=== PATIENT | female | born 1945 | race African-American/Black ===

== ENCOUNTER 2020-03-08 11:05 | Inpatient (IN) | payer MEDICARE, OTHER ==
[~2020-03-08] VITALS: Ht 157.5 cm; Wt 79.8 kg
[2020-03-08] MEDS ORDERED: SODIUM CHLORIDE 0.9% 1,000 ML IV ONE (11:39)
[2020-03-08] MEDS ORDERED: METOCLOPRAMIDE HCL 10MG/2ML VIAL IV ONE (11:45)
[2020-03-08] MEDS ORDERED: DIPHENHYDRAMINE 50MG/ML VIAL IV ONE (11:45)
[2020-03-08 12:11] LABS: BASOPHILS % 0.5 % (0.0-2.0); EOSINOPHILS % 0.1 % (0.0-5.0); HEMATOCRIT. 40.8 % (36.0-48.0); HEMOGLOBIN. 13.5 g/dL (12.0-16.0); LYMPHOCYTES % 12.9 % (20.0-50.0); MEAN CORPUSCULAR HEMOGLOBIN 31.7 pg (28.0-32.0); MEAN CORPUSCULAR VOLUME 95.4 fL (81.0-99.0); MEAN PLATELET VOLUME 7.6 fl (7.4-10.4); NEUTROPHILS % 79.5 % (40.0-76.0); PLATELET 294 x1000/uL (130-400); RED BLOOD CELL COUNT 4.28 mill/uL (4.2-5.4); RED CELL DISTRIBUTION WIDTH 14.3 % (11.6-14.6)
[2020-03-08 12:19] LABS: CHLORIDE 108 mEq/L (98-107)
[2020-03-08 13:02] LABS: INR 1.1; PROTHROMBIN TIME 11.6 sec (9.6-11.0)
[2020-03-08] MEDS ORDERED: IOHEXOL-350 100 ML BOTTLE ONE (13:49)
[2020-03-08] MEDS ORDERED: CEFTRIAXONE 1 G PREMIX 50 ML IV ONE (14:00)
[2020-03-08] MEDS ORDERED: AZITHROMYCIN 500 MG in DEXT 5% WATER 250 ML IV ONE (14:00)
[2020-03-08] MEDS ORDERED: HYDROCODONE/ACETAMINOPHEN 5/325MG TABLET PO PRN (16:00)
[2020-03-08] MEDS ORDERED: IPRATROPIUM/ALBUTEROL 0.5-3(2.5)MG/3ML NEB NEB PRN (16:00)
[2020-03-08] MEDS ORDERED: DIPHENHYDRAMINE 50MG/ML VIAL IV PRN (16:00)
[2020-03-08] MEDS ORDERED: ONDANSETRON HCL 4MG/2ML INJ IV PRN (16:00)
[2020-03-08] MEDS ORDERED: LORAZEPAM 0.5MG TABLET PO PRN (16:00)
[2020-03-08] MEDS ORDERED: ACETAMINOPHEN 325MG TABLET PO PRN (16:00)
[2020-03-08] MEDS ORDERED: MAGNESIUM/ALUMINUM HYDROXIDE/SIMETHICONE 30ML UDC PO PRN (16:00)
[2020-03-08] MEDS ORDERED: CLONIDINE 0.1MG TABLET PO PRN (16:00)
[2020-03-08] MEDS ORDERED: ACETAMINOPHEN 650MG SUPP PR PRN (16:00)
[2020-03-08] MEDS ORDERED: DOCUSATE SODIUM 100MG CAPSULE PO PRN (16:00)
[2020-03-08] MEDS ORDERED: NA PHOS,M-B/NA PHOS,DI-BA ENEMA 118ML PR PRN (16:00)
[2020-03-08] MEDS ORDERED: GUAIFENESIN 200MG/10ML SUGAR FREE UDC PO PRN (16:00)
[2020-03-08] MEDS ORDERED: ENOXAPARIN 40MG/0.4ML SYR SUBCUT SCH (17:00)
[2020-03-08 19:30] LABS: CLARITY URINE CLEAR (CLEAR); COLOR URINE YELLOW (YELLOW); KETONES URINE TRACE (NEGATIVE); LEUKOCYTE ESTERASE URINE NEGATIVE (NEGATIVE); NITRITE URINE NEGATIVE (NEGATIVE); OCCULT BLOOD URINE NEGATIVE (NEGATIVE); PROTEIN URINE TRACE (NEGATIVE); SPECIFIC GRAVITY URINE 1.087 (1.005-1.030); UROBILINOGEN URINE 0.2 E.U./dL (0.2-1.0)
[2020-03-08 19:52] LABS: *AMPHETAMINES SCREEN URINE NEGATIVE (NEGATIVE); *BARBITURATES SCREEN URINE NEGATIVE (NEGATIVE); *BENZODIAZEPINES SCREEN URINE NEGATIVE (NEGATIVE); *COCAINE SCREEN URINE NEGATIVE (NEGATIVE)
[2020-03-08 19:53] LABS: CANNABINOID URINE SCREEN NEGATIVE (NEGATIVE); OPIATES URINE SCREEN NEGATIVE (NEGATIVE); PHENCYCLIDINE URINE SCREEN NEGATIVE (NEGATIVE)
[2020-03-08 19:54] LABS: METHADONE URINE SCREEN NEGATIVE (NEGATIVE)
[2020-03-08 20:00] VITALS: BP 174/78
[2020-03-08 21:10] VITALS: BP 174/78
[2020-03-08] MEDS: FAMOTIDINE 20MG TABLET PO SCH (21:52)
[2020-03-08] MEDS: ATORVASTATIN CALCIUM 10MG TABLET PO SCH (21:52)
[2020-03-09] VITALS: BP 121/64
[2020-03-09 04:00] VITALS: BP 129/56
[2020-03-09 08:00] VITALS: BP 125/54
[2020-03-09] MEDS: ASPIRIN 81MG EC TABLET PO SCH (08:02)
[2020-03-09 08:12] LABS: BASOPHILS % 0.4 % (0.0-2.0); EOSINOPHILS % 1.5 % (0.0-5.0); HEMATOCRIT. 38.1 % (36.0-48.0); LYMPHOCYTES % 22.1 % (20.0-50.0); MEAN CORPUSCULAR HEMOGLOBIN 32.3 pg (28.0-32.0); MEAN CORPUSCULAR VOLUME 94.8 fL (81.0-99.0); MEAN PLATELET VOLUME 7.7 fl (7.4-10.4); PLATELET 241 x1000/uL (130-400); RED BLOOD CELL COUNT 4.02 mill/uL (4.2-5.4)
[2020-03-09 08:25] LABS: CHLORIDE 109 mEq/L (98-107)
[2020-03-09 08:39] LABS: LDL CHOLESTEROL 133 mg/dL (5-100)
[2020-03-09 08:40] LABS: T4 FREE 1.05 ng/dL (0.76-1.46)
[2020-03-09 08:41] LABS: HDL CHOLESTEROL 57 mg/dL (40-59)
[2020-03-09 12:00] VITALS: BP 129/54
[2020-03-09] MEDS: AZITHROMYCIN 500 MG in DEXT 5% WATER 250 ML IV SCH (13:00)
[2020-03-09] MEDS ORDERED: AZITHROMYCIN 500 MG in DEXT 5% WATER 250 ML IV SCH (14:00)
[2020-03-09] MEDS ORDERED: CEFTRIAXONE 1 G PREMIX 50 ML IV SCH (14:00)
[2020-03-09 14:12] LABS: BG CARBOXYHEMOGLOBIN 0.3 % (0.5-1.5); BG DEOXYHEMOGLOBIN 6.6 % (0.0-5.0); BG FRACTION INSPIRED OXYGEN 21; BG HCO3 ACT 23.5 mmol/L (22.0-26.0); BG METHEMOGLOBIN 0.3 % (0.0-1.5); BG OXYGEN SATURATION 93.4 % (92.0-98.5); BG OXYHEMOGLOBIN 92.8 % (94.0-97.0); BG PCO2 34.9 mmHg (35.0-45.0); BG PH 7.447 (7.350-7.450); BG PO2 64.7 mmHg (75.0-100.0); BG SAMPLE SITE RIGHT RADIAL; BG TOTAL HEMOGLOBIN 13.5 g/dL (12.0-18.0); BG VENT MODE ROOM AIR
[2020-03-09] MEDS: CEFTRIAXONE 1,000 MG in DEXTROSE 5% WATER 50 ML IV SCH (16:10)
[2020-03-09 20:00] VITALS: BP 150/80
[2020-03-09] MEDS: ATORVASTATIN CALCIUM 10MG TABLET PO SCH (20:07)
[2020-03-09] MEDS: FAMOTIDINE 20MG TABLET PO SCH (20:07)
[2020-03-10] VITALS: BP 152/62
[2020-03-10 04:00] VITALS: BP 144/63
[2020-03-10 06:33] LABS: BASOPHILS % 0.6 % (0.0-2.0); EOSINOPHILS % 1.5 % (0.0-5.0); HEMATOCRIT. 39.4 % (36.0-48.0); HEMOGLOBIN. 13.2 g/dL (12.0-16.0); LYMPHOCYTES % 23.7 % (20.0-50.0); MEAN CORPUSCULAR HEMOGLOBIN 31.9 pg (28.0-32.0); MEAN CORPUSCULAR VOLUME 95.6 fL (81.0-99.0); MEAN PLATELET VOLUME 7.9 fl (7.4-10.4); MONOCYTES % 8.6 % (2.0-8.0); NEUTROPHILS % 65.6 % (40.0-76.0); PLATELET 236 x1000/uL (130-400); RED BLOOD CELL COUNT 4.12 mill/uL (4.2-5.4); RED CELL DISTRIBUTION WIDTH 14.2 % (11.6-14.6)
[2020-03-10 06:56] LABS: CHLORIDE 108 mEq/L (98-107)
[2020-03-10 08:00] VITALS: BP 153/63
[2020-03-10] MEDS: ASPIRIN 81MG EC TABLET PO SCH (08:19)
[2020-03-10 12:00] VITALS: BP 115/73
[2020-03-10] MEDS ORDERED: POTASSIUM CHLORIDE 20MEQ TABLET SR PO SCH (13:45)
[2020-03-10] MEDS: AZITHROMYCIN 500 MG in DEXT 5% WATER 250 ML IV SCH (13:46)
[2020-03-10] MEDS: CEFTRIAXONE 1,000 MG in DEXTROSE 5% WATER 50 ML IV SCH (15:10)
[2020-03-10 16:00] VITALS: BP 126/54
[2020-03-10 20:00] VITALS: BP 147/73
[2020-03-10] MEDS: FAMOTIDINE 20MG TABLET PO SCH (21:06)
[2020-03-10] MEDS: ATORVASTATIN CALCIUM 10MG TABLET PO SCH (21:06)
[2020-03-11] VITALS: BP 138/75
[2020-03-11 04:00] VITALS: BP 152/86
[2020-03-11 08:00] VITALS: BP 155/72
[2020-03-11] MEDS: ASPIRIN 81MG EC TABLET PO SCH (08:33)
[2020-03-11 12:00] VITALS: BP 142/62
[2020-03-11] MEDS: AZITHROMYCIN 500 MG in DEXT 5% WATER 250 ML IV SCH (13:55)
[2020-03-11 14:20] VITALS: BP 141/71
[2020-03-11] MEDS: CEFTRIAXONE 1,000 MG in DEXTROSE 5% WATER 50 ML IV SCH (15:49)
[2020-03-11 17:16] LABS: CHLORIDE 109 mEq/L (98-107)
== END 2020-03-11 17:05 | disposition home or self-care (01) | DRG 65 ==
LOC: ER 11:05 → 7WST 15:26 → SUPCPDRO 15:29 → ENRESERV 19:50 → 7WST 03-10 14:11
PROVIDERS: ADMIT Internal Medicine; ATTEND Internal Medicine
DX: I63.9 Cerebral infarction, unspecified (principal); E87.2 Acidosis; M47.812 Spondylosis without myelopathy or radiculopathy, cervical region; E78.5 Hyperlipidemia, unspecified; E04.2 Nontoxic multinodular goiter; E78.00 Pure hypercholesterolemia, unspecified; Z20.828 Contact with and (suspected) exposure to other viral communicable diseases; E86.0 Dehydration; I10 Essential (primary) hypertension; R91.1 Solitary pulmonary nodule; Z88.6 Allergy status to analgesic agent; Z79.899 Other long term (current) drug therapy
CPT/HCPCS: 36415; 36600; 70496; 70498; 70551; 71045; 80048; 80053; 80061; 80305; 81003; 82375; 82805; 83036; 83605; 83880; 84145; 84439; 84443; 84481; 84484; 85025; 85651; 86850; 86900; 87635; 93005; 93970; 96365; 99291; J0456; J0696; J1200; J2765; J7030; J7060; Q9967